=== PATIENT | female | born 1975 | race Caucasian/White ===

== ENCOUNTER 2019-03-02 21:42 | Inpatient (IN) | payer MEDICAID ==
[~2019-03-02] VITALS: Ht 180.3 cm; Wt 167.8 kg
--- NOTE | 2019-03-02 22:13 | NUR ---
LABS AND URINE COLLECTED AND SENT TO LAB WITH MS. LEWIS
[2019-03-02 22:50] LABS: BASOPHILS 0.6 % (0-2); EOSINOPHILS 2.9 % (0-7); HEMATOCRIT 33.8 % (36.0-48.0); HEMOGLOBIN 10.4 g/dL (12-16); IMMATURE GRANULOCYTES 0.1 % (0-5); LYMPHOCYTES 21.5 % (15-50); MCH 23.2 pg (26.0-34.0); MCHC 30.8 g/dL (31.0-37.0); MCV 75.4 fL (80.0-100.0); MEAN PLATELET VOLUME 9.8 fL (7.4-10.4); MONOCYTES 7.3 % (2-11); NEUTROPHILS 67.6 % (40-80); PLATELET COUNT 315 10x3/uL (130-400); RBC 4.48 10x6/uL (4.00-5.40); RDW 17.4 % (11.5-14.5); WBC 9.1 10x3/uL (4.8-10.8)
[2019-03-02 22:52] LABS: APPEARANCE CLEAR (CLEAR); BILIRUBIN NEGATIVE (NEGATIVE); COLOR YELLOW (YELLOW); EPITHELIAL CELLS 0-5 /hpf (0-5); GLUCOSE NEGATIVE (NEGATIVE); KETONE NEGATIVE (NEGATIVE); NITRITE NEGATIVE (NEGATIVE); PROTEIN TRACE mg/dL (NEGATIVE); SPECIFIC GRAVITY 1.025 (1.005-1.020); UROBILINOGEN NORMAL (NORMAL); WHITE CELLS - URINE 0-5 /hpf (0-5)
[2019-03-02 22:53] LABS: BACTERIA MODERATE /hpf (NONE SEEN)
[2019-03-02 22:57] LABS: ALBUMIN 3.4 g/dL (3.4-5.0); ALKALINE PHOSPHATASE 62 U/L (46-116); ALT (SGPT) 19 U/L (10-68); BILIRUBIN - TOTAL 0.34 mg/dL (0.2-1.3); CALC OSMOLALITY 279 mosm/kg (275-300); CARBON DIOXIDE 30.1 mmol/L (21.0-32.0); CHLORIDE - SERUM 104 mmol/L (98-107); CREATININE - SERUM 0.8 mg/dL (0.6-1.3); GLUCOSE 106 mg/dL (74-106); POTASSIUM - SERUM 4.2 mmol/L (3.5-5.1); PROTEIN - SERUM 6.9 g/dL (6.4-8.2); SODIUM 141 mmol/L (136-145); UREA NITROGEN 11 mg/dL (7-18); eGFR NON AFRICAN AMERICAN 83 mL/min (90-120)
--- NOTE | 2019-03-02 23:01 | NUR ---
DR PHELAN NOTIFIED AND REVIEWED PT's BEHAVIOR AND ASSESSMENT RESULTS. PT IS A LOW RISK PER DR PHELAN. DR PHELAN STATED TO GIVE RESOURCES TO PT AT TIME OF DISCHARGE. NO FURTHER ORDERS AT THIS TIME. RESOURCES REVIEWED WITH PT AND SHE VERBALIZED UNDERSTANDING.
[2019-03-02 23:02] LABS: AMYLASE - SERUM 24 U/L (25-115); LIPASE 90 U/L (73-393)
[2019-03-02 23:03] LABS: TROPONIN-I < 0.017 ng/mL (0.000-0.060)
[2019-03-03] VITALS (7 sets, daily range): BP systolic 110–174; BP diastolic 41–99; Ht 180.3 cm; Wt 167.8 kg
--- NOTE | 2019-03-03 06:20 | NUR ---
PT ARRIVED ON UNIT VIA WC AT 0230, ACCOMPANIED BY HOSPITAL STAFF, FROM ER, PT PRESENTED TO ER WITH LEFT LOWER QUAD PAIN, FOUND TO HAVE A LEFT OVARIAN CYST/MASS, ALLERGY TO CIPRO, PT STABLE, NPO, 20G TO R HAND, EX, SPIDER VEINS TO BLE, EXCORIATION UNDER R-BREAST
--- NOTE | 2019-03-03 10:56 | NUR ---
PT RESTING IN BED. CO OF "MONTERO" NO S/S OF ACUTE DISTRESS. NPO FOR SX. CL IN PLACE.
[2019-03-03 12:21] LABS: HCG SERUM NEGATIVE (NEGATIVE)
--- NOTE | 2019-03-03 15:51 | NUR ---
REC'D. 125/[id number]% O2 @ 5 LITERS. PT AROUSED BY VERBAL STIMULI. NO S/S OF ACUTE DISTRESS. CL IN PLACE.
--- NOTE | 2019-03-03 17:58 | NUR ---
PT RESTING IN BED. AROUSED BY VERBAL STIMULI. NO S/S OF ACUTE DISTRESS. CL IN PLACE.
--- NOTE | 2019-03-03 19:27 | NUR ---
PT RESTING IN BED. NO S/S OF ACUTE DISTRESS. CHEST RISING AND FALLING. CL IN PLACE.
--- NOTE | 2019-03-03 20:00 | NUR ---
EYES CLOSED RESP UNLABORED, AROUSED EASILY, ASSISTED UP TO BR VOIDED, BACK TO BED WITHOUT DIFFICULTY,SEE SHIFT ASSESSMENT, CALL LIGHT IN REACH
[2019-03-04 01:25] VITALS: BP 127/66
[2019-03-04 05:29] VITALS: BP 150/56
[2019-03-04 06:45] LABS: BASOPHILS 0.1 % (0-2); EOSINOPHILS 0.2 % (0-7); HEMATOCRIT 28.6 % (36.0-48.0); HEMOGLOBIN 8.7 g/dL (12-16); IMMATURE GRANULOCYTES 0.2 % (0-5); LYMPHOCYTES 9.4 % (15-50); MCH 23.2 pg (26.0-34.0); MCHC 30.4 g/dL (31.0-37.0); MCV 76.3 fL (80.0-100.0); MEAN PLATELET VOLUME 9.9 fL (7.4-10.4); NEUTROPHILS 82.1 % (40-80); RBC 3.75 10x6/uL (4.00-5.40); RDW 17.5 % (11.5-14.5)
[2019-03-04 07:02] LABS: PLATELET COUNT 248 10x3/uL (130-400); WBC 13.6 10x3/uL (4.8-10.8)
[2019-03-04 07:08] LABS: ALBUMIN 2.6 g/dL (3.4-5.0); ANION GAP 10.8 mmol/L (8-16); BILIRUBIN - TOTAL 0.62 mg/dL (0.2-1.3); CARBON DIOXIDE 27.8 mmol/L (21.0-32.0); POTASSIUM - SERUM 3.6 mmol/L (3.5-5.1); PROTEIN - SERUM 6.2 g/dL (6.4-8.2)
--- NOTE | 2019-03-04 09:00 | NUR ---
ASSESSMENT PER FLOW SHEET. PT IS WITHOUT DISTRESS.INCISION TO MID ABDOMEN APROXIMATED WITH ADHESIVE AND IS WITHOUT DRAINAGE. DENIES PAIN AT PRESENT.
[2019-03-04 09:11] VITALS: BP 144/72
--- NOTE | 2019-03-04 10:35 | NUR ---
IV DCD WITH CATH TIP INTACT. DISCHARGE INSTRUCTIONS,STATES UNDERSTANDING. WAITING ON RIDE FOR TRANSPORT HOME
--- NOTE | 2019-03-04 12:07 | MORECARE ---
CASE MANAGEMENT DISCHARGE SUMMARY PATIENT: ISAAC CHEN UNIT: [id number] ADM DATE: 03/03/19 AGE: 43 : [birth year] SEX: F ROOM/BED: D.2214 AUTHOR: ISAIAS HUSSEIN PHYSICIAN: REFERRING PHYSICIAN: TED MARTÍNEZ MD DATE OF SERVICE: 03/04/19 Discharge Plan Patient Name: ISAAC CHEN Facility: [facility]:[place] : 1975 Planned Disposition: Home Anticipated Discharge Date: Discharge Date: Expected LOS: Initial Reviewer: [email or web address] Initial Review Date: 03/04/2019 Generated: 03/04/19 1:07 pm Comments DCP- Discharge Planning Updated by [email or web address]: Carmelina Burnett on 03/04/19 11:[address] Patient Name: ISAAC CHEN Admission Status: ER Accout number: [id number] Admission Date: 03-03-2019 : 1975 Admission Diagnosis: Attending: Ted Martínez Current LOS: 1 Anticipated DC Date: Planned Disposition: Home Primary Insurance: MEDICAID [place] PENDING Discharge Planning Comments: CM MET WITH PATIENT ABOUT DC NEEDS. STATES NO NEEDS AND HER SON EMELIA WILL RACK CLEANER AFTER 6PM TODAY. CM TO FOLLOW AND ASSIST NEEDED. Professor Of Early Childhood Education: Carmelina Burnett DCPIA - Discharge Planning Initial Assessment Updated by [email or web address]: Carmelina Burnett on 03/04/19 12:06 pm * Is the patient Alert and Oriented? Yes * PCP NONE * Pharmacy [facility] * Preadmission Environment Home with Family * ADLs Independent * List name and contact numbers for known caregivers / representatives who currently or will assist patient after discharge: MAILE KAPOOR, * Additional services required to return to the preadmission environment? No * Can the patient safely return to the preadmission environment? Yes * Has this patient been hospitalized within the prior 30 days at any hospital? No Patient Name: ISAAC CHEN Page [id number] at 1207 All edits/amendments must be made on the electronic document DICTATION DATE: 03/04/19 1207 BAIL BONDING AGENT: EULA 03/04/19 1207 RPT#: [id number] DC DATE: STATUS: ADM IN [facility] [address] [place] [address] END OF REPORT
[2019-03-04 12:56] VITALS: BP 154/89
--- NOTE | 2019-03-04 13:56 | NUR ---
AMBULATING IN HALLS AFTER SHOWER. PT STILL WAITING ON RIDE HOME. HER SON WILL PICK HER UP AFTER HE GETS OFF WORK
--- NOTE | 2019-03-04 18:49 | NUR ---
STILL WAITING ON RIDE HOME
--- NOTE | 2019-03-04 20:30 | NUR ---
PT'S RIDE IS HERE. PT LEFT FLOOR IN WHEELCHAIR WITH SAFETY NET MAKER.
--- NOTE | 2019-03-05 08:29 | MORECARE ---
CASE MANAGEMENT DISCHARGE SUMMARY PATIENT: ISAAC CHEN UNIT: [id number] ADM DATE: 03/03/19 AGE: 43 : [birth year] SEX: F ROOM/BED: D.2214 AUTHOR: ISAIAS HUSSEIN PHYSICIAN: REFERRING PHYSICIAN: TED MARTÍNEZ MD DATE OF SERVICE: 03/05/19 Discharge Plan Patient Name: ISAAC CHEN Facility: [facility]:[place] : 1975 Planned Disposition: Home Anticipated Discharge Date: Discharge Date: 03/04/2019 Expected LOS: Initial Reviewer: [email or web address] Initial Review Date: 03/04/2019 Generated: 03/05/19 9:29 am Comments DCP- Discharge Planning Updated by [email or web address]: Carmelina Burnett on 03/04/19 11:[address] Patient Name: ISAAC CHEN Admission Status: ER Accout number: [id number] Admission Date: 03-03-2019 : 1975 Admission Diagnosis: Attending: Ted Martínez Current LOS: 1 Anticipated DC Date: Planned Disposition: Home Primary Insurance: MEDICAID [place] PENDING Discharge Planning Comments: CM MET WITH PATIENT ABOUT DC NEEDS. STATES NO NEEDS AND HER SON EMELIA WILL REAL ESTATE BROKER ASSOCIATE AFTER 6PM TODAY. CM TO FOLLOW AND ASSIST NEEDED. Reading Instructor: aCrmelina Burnett DCPIA - Discharge Planning Initial Assessment Updated by [email or web address]: Carmelina Burnett on 03/04/19 12:06 pm * Is the patient Alert and Oriented? Yes * PCP NONE * Pharmacy [facility] * Preadmission Environment Home with Family * ADLs Independent * List name and contact numbers for known caregivers / representatives who currently or will assist patient after discharge: MAILE KAPOOR, * Additional services required to return to the preadmission environment? No * Can the patient safely return to the preadmission environment? Yes * Has this patient been hospitalized within the prior 30 days at any hospital? No Last DP export: 03/04/19 11:07 a Patient Name: ISAAC CHEN Page [id number] at 0829 All edits/amendments must be made on the electronic document DICTATION DATE: 03/05/19827 GENERATOR REBUILDER: DM 03/05/19827 RPT#: [id number] DC DATE:03/04/19 STATUS: DIS IN [facility] [address] [place] [address] END OF REPORT
== END 2019-03-04 20:30 | disposition home or self-care (01) | DRG 983 ==
LOC: D.ER 21:42 → D.MS 03-03 01:51
PROVIDERS: Anesthesiology; Family Medicine; ADMIT Obstetrics & Gynecology; ATTEND Obstetrics & Gynecology
PROC: 0UDB8ZZ Extraction of Endometrium, Via Natural or Artificial Opening Endoscopic (ICD-10-PCS; principal; 2019-03-03 08:45)
PROC: 0UB14ZZ Excision of Left Ovary, Percutaneous Endoscopic Approach (ICD-10-PCS; 2019-03-03 08:45)
DX: R19.00 Intra-abdominal and pelvic swelling, mass and lump, unspecified site (principal); N93.8 Other specified abnormal uterine and vaginal bleeding; N80.9 Endometriosis, unspecified; R10.32 Left lower quadrant pain; I10 Essential (primary) hypertension; F17.200 Nicotine dependence, unspecified, uncomplicated